=== PATIENT | male | born 1990 | race African-American/Black ===

== ENCOUNTER 2017-05-23 17:03 | Emergency (ER) | payer OTHER, SELFPAY ==
[2017-05-23] MEDS ORDERED: HYDROcodone/Acetaminophen 10/325 mg Tablet ONE (17:21)
[2017-05-23] MEDS ORDERED: Naproxen 500 MG TAB ONE (17:21)
--- NOTE | 2017-05-23 19:20 | CT ---
BRAIN CT WITHOUT IV CONTRAST: 05/23/17 HISTORY: 26-year-old male with head injury following trauma. No focal mass or midline shift. No intra or extra-axial hemorrhage. Mild right ethmoid sinus mucosal disease. IMPRESSION: No acute intracranial process. No mass or bleed. Mild right ethmoid sinus mucosal disease. POS: [facility]
== END 2017-05-23 19:37 | disposition home or self-care (01) ==
LOC: MADERS 17:03
DX: S00.83XA Contusion of other part of head, initial encounter (principal); X58.XXXA Exposure to other specified factors, initial encounter
CPT/HCPCS: 70450